=== PATIENT | female | born 1985 | race Caucasian/White ===

== ENCOUNTER 2016-06-18 22:32 | Emergency (ER) | payer SELFPAY ==
[2016-06-18 22:41] VITALS: TEMP 98.3; BMI 28.1
--- NOTE | 2016-06-18 23:33 | PDOC ---
History of Present Illness - General History Source: Patient Exam Limitations: No Limitations - History of Present Illness Initial Comments: 06/18/16 23:38 Patient is a 30 year old female with a significant past medical history of recurrent UTIs and kidney infection who presents to the ED with left flank pain and vomiting. Patient notes that the pain is so severe that she has had multiple vomiting episodes. She reports transient blood in vomit in her last 3 episodes. Patient states that she has had the left flank pain for 1 week and the pain has been intermittent nonradiating. She had not had regular periods since she had her child. No fever or chills. She denies dysuria. <Savanah Castro - Last Filed: 06/18/16 23:38> - General History Source: Patient <Vish Peña - Last Filed: 06/19/16 05:49> - General Chief Complaint: Vomiting Blood Stated Complaint: VOMITING BLOOD Time Seen by Provider: 06/18/16 23:33 Past History <Savanah Castro - Last Filed: 06/18/16 23:38> - Past Medical History Asthma: No Cancer: No (precervical ca stage I) Cardiac Disorders: No Diabetes: No Disorders: Yes (KIDNEY INFECTION) HTN: No Seizures: No Thyroid Disease: No - Surgical History Cholecystectomy: Yes - Reproductive History (#): 13 Para: 3 Therapeutic (s) & number: No Spontaneous : 9 - Immunization History Immunization Up to Date: Yes - Psycho/Social/Smoking Cessation Hx Anxiety: No Suicidal Ideation: No Smoking History: Never smoked Have you smoked in the past 12 months: No Number of Cigarettes Smoked Daily: 0 Hx Alcohol Use: No Drug/Substance Use Hx: No Substance Use Type: None Hx Substance Use Treatment: No <Vish Peña - Last Filed: 06/19/16 05:49> - Past Medical History Allergies/Adverse Reactions: Allergies Allergy/AdvReac Type Severity Reaction Status Date / Time No Known Allergies Allergy Verified 01/07/16 21:19 Home Medications: Ambulatory Orders Vit/Iron Fumarate/FA [ Tablet] 1 each PO DAILY 09/09/15 Ibuprofen [Motrin] 600 mg PO TID #30 tablet 06/19/16 Oxycodone HCl/Acetaminophen [Percocet 5-325 mg Tablet] 1 - 2 tab PO Q6H #20 tablet MDD 4 06/19/16 Sulfamethoxazole/Trimethoprim [Bactrim *Ds*] 1 tab PO BID #20 tablet 06/19/16 Review of Systems - Review of Systems Able to Perform ROS?: Yes Comments:: 06/18/16 23:39 CONSTITUTIONAL: Absent: fever, chills, diaphoresis, generalized weakness, malaise, loss of appetite HEENT: Absent: rhinorrhea, nasal congestion, throat pain, throat swelling, difficulty swallowing, mouth swelling, ear pain, eye pain, visual Changes CARDIOVASCULAR: Absent: chest pain, syncope, palpitations, irregular heart rate, lightheadedness , peripheral edema RESPIRATORY: Absent: cough, shortness of breath, dyspnea with exertion, orthopnea, wheezing, stridor, hemoptysis GASTROINTESTINAL: Present: vomiting Absent: abdominal pain, abdominal distension, nausea, diarrhea, constipation, melena, hematochezia GENITOURINARY: Present: flank pain Absent: dysuria, frequency, urgency, hesitancy, hematuria, genital pain MUSCULOSKELETAL: Absent: myalgia, arthralgia, joint swelling SKIN: Absent: rash, itching, pallor HEMATOLOGIC/IMMUNOLOGIC: Absent: easy bleeding, easy bruising, lymphadenopathy, frequent infections ENDOCRINE: Absent: unexplained weight gain, unexplained weight loss, heat intolerance, cold intolerance NEUROLOGIC: Absent: headache, focal weakness or paresthesias, dizziness, unsteady gait, seizure, mental status changes, bladder or bowel incontinence PSYCHIATRIC: Absent: anxiety, depression, suicidal or homicidal ideation, hallucinations. <Savanah Castro - Last Filed: 06/18/16 23:38> *Physical Exam - Vital Signs Last Vital Signs Temp Pulse Resp BP Pulse Ox 98.3 F 81 20 102/70 99 06/18/16 22:39 06/18/16 22:39 06/18/16 22:39 06/18/16 22:39 06/18/16 22:39 - Physical Exam Comments: 06/18/16 23:40 GENERAL: Well developed, well nourished. Awake and alert. +In moderate acute distress. HEENT: Normocephalic, atraumatic. PERRLA, EOMI. No conjunctival pallor. Sclerae are non -icteric. Moist mucous membranes. Oropharynx is clear. NECK: Supple. Full ROM. No JVD. Carotid pulses 2+ and symmetric, without bruits. No thyromegaly. No lymphadenopathy. CARDIOVASCULAR: Regular rate and rhythm. No murmurs, rubs, or gallops. Distal pulses are 2+ and symmetric. PULMONARY: No evidence of respiratory distress. Lungs clear to auscultation bilaterally. No wheezing, rales or rhonchi. ABDOMINAL: Soft. Non-tender. Non-distended. No rebound or guarding. No organomegaly. Normoactive bowel sounds. MUSCULOSKELETAL +Moderate left CVA tenderness. Normal range of motion at all joints. No bony deformities or tenderness. EXTREMITIES: No cyanosis. No clubbing. No edema. No calf tenderness. SKIN: Warm and dry. Normal capillary refill. No rashes. No jaundice. NEUROLOGICAL: Alert, awake, appropriate. Cranial nerves 2-12 intact. No deficits to light touch and temperature in face, upper extremities and lower extremities. No motor deficits in the in face, upper extremities and lower extremities. Normoreflexic in the upper and lower extremities. Normal speech. Toes are downgoing bilaterally. Gait is normal without ataxia. PSYCHIATRIC: Cooperative. Good eye contact. Appropriate mood and affect. <Savanah Castro - Last Filed: 06/18/16 23:38> - Vital Signs Last Vital Signs Temp Pulse Resp BP Pulse Ox 98.3 F 81 20 102/70 99 06/18/16 22:39 06/18/16 22:39 06/18/16 22:39 06/18/16 22:39 06/18/16 22:39 <Vish Peña - Last Filed: 06/19/16 05:49> ED Treatment Course - LABORATORY CBC & Chemistry Diagram: 06/18/16 23:45 06/18/16 23:45 <Vish Peña - Last Filed: 06/19/16 05:49> Medical Decision Making - Medical Decision Making 06/19/16 05:47 Dr. Peña: The scribe's documentation has been prepared under my direction and personally reviewed by me in its entirery. I confirm that the note above accurately reflects all work, treatment, procedures, and medical decision making performed by me. Pt found to have UTI by UA. Pt feels better after treatment here in the ED. Will discharge <Vish Peña - Last Filed: 06/19/16 05:49> *DC/Admit/Observation/Transfer - Attestations Scribe Attestion: 06/18/16 23:41 Documentation prepared by ZACKARY Martines, acting as diploma medical assistant for Vish Peña DO. <Savanah Castro - Last Filed: 06/18/16 23:38> - Discharge Dispostion Admit: No <Vish Peña - Last Filed: 06/19/16 05:49> Diagnosis at time of Disposition: Urinary tract infection Qualifiers: Urinary tract infection type: site unspecified Hematuria presence: without hematuria Qualified Code(s): N39.0 - Urinary tract infection, site not specified - Discharge Dispostion Disposition: HOME Condition at time of disposition: Improved - Prescriptions Prescriptions: Sulfamethoxazole/Trimethoprim [Bactrim *Ds*] 1 tab PO BID #20 tablet Ibuprofen [Motrin] 600 mg PO TID #30 tablet Oxycodone HCl/Acetaminophen [Percocet 5-325 mg Tablet] 1 - 2 tab PO Q6H #20 tablet MDD 4 - Referrals Referrals: Sher Ochoa [Primary Care Provider] - - Patient Instructions Printed Discharge Instructions: DI for Urinary Tract Infection (UTI) - Post Discharge Activity Work/School Note: Back to Work
[2016-06-18] MEDS ORDERED: SODIUM CHLORIDE 1,000 ML IV STA (23:34)
[2016-06-18] MEDS ORDERED: KETOROLAC TROMETHAMINE 30 MG/1 ML VIAL IVPUSH ONE (23:34)
[2016-06-18] MEDS ORDERED: KETOROLAC TROMETHAMINE 30 MG/1 ML VIAL ONE (23:44)
[2016-06-18 23:54] LABS: BASOPHIL 0.7 % (0-2.0); EOSINOPHIL 1.4 % (0-4.5); MCH 28.1 pg (25.7-33.7); MCHC 33.1 g/dl (32.0-36.0); MEAN CELL VOLUME 84.7 fl (80-96); MEAN PLT VOLUME 8.3 fl (7.5-11.1); NEUTROPHILS 61.2 % (42.8-82.8); PLATELET COUNT 276 K/MM3 (134-434); RDW 13.7 % (11.6-15.6); WHITE BLOOD COUNT 11.1 K/mm3 (4.0-10.0)
[2016-06-19] MEDS ORDERED: morphine CARPU-JECT 2 MG/1 ML DISP.SYRIN IVPUSH ONE (00:45)
[2016-06-19] MEDS ORDERED: ONDANSETRON 4 MG/2 ML VIAL IVPUSH STA ×2 (00:45→04:43)
[2016-06-19] MEDS ORDERED: SODIUM CHLORIDE 1,000 ML IV STA (00:45)
[2016-06-19 00:53] LABS: ALBUMIN 3.5 g/dl (3.4-5.0); ALK PHOS 68 U/L (45-117); ANION GAP 10 (8-16); BILIRUBIN,TOTAL 0.4 mg/dL (0.2-1.0); CALCIUM 8.7 mg/dL (8.5-10.1); CO2 30 mmol/L (21-32); CREATININE 0.9 mg/dL (0.55-1.02); GLUCOSE,RANDOM 91 mg/dL (74-106); MAGNESIUM 2.2 mg/dL (1.8-2.4); SGOT/AST 13 U/L (15-37); SGPT/ALT 22 U/L (12-78); TOT PROT 7.4 g/dl (6.4-8.2)
[2016-06-19] MEDS ORDERED: ONDANSETRON 4 MG/2 ML VIAL ONE ×2 (00:55→04:45)
[2016-06-19] MEDS ORDERED: morphine CARPU-JECT 2 MG/1 ML DISP.SYRIN ONE (00:55)
[2016-06-19] MEDS ORDERED: DEXTROSE 5%-0.45% SALINE 1,000 ML IV SCH (01:45)
[2016-06-19] MEDS ORDERED: cefTRIAXone SODIUM 1 GM VIAL ONE (04:24)
[2016-06-19 04:27] LABS: URINE APPEARANCE SLCLOUDY; URINE BILIRUBIN NEGATIVE (NEGATIVE); URINE COLOR YELLOW; URINE GLUCOSE (UA) NEGATIVE (NEGATIVE); URINE KETONE NEGATIVE (NEGATIVE); URINE NITRITE POSITIVE (NEGATIVE); URINE PROTEIN NEGATIVE (NEGATIVE); URINE UROBILINOGEN NEGATIVE E.U./dl (0.2-1.0)
[2016-06-19 04:29] LABS: URINE BLOOD 1+ (NEGATIVE); URINE LEUK ESTERASE 1+ (NEGATIVE)
[2016-06-19 04:43] LABS: URINE BACTERIA FEW /hpf (NONE SEEN); URINE MUCUS MODERATE; URINE RBC 1 /hpf (0-3); URINE WBC 14 /hpf (3-5)
[2016-06-19] MEDS ORDERED: OXYCODONE/APAP 5/325MG COMBO TABLET PO ONE (04:43)
[2016-06-19] MEDS ORDERED: OXYCODONE/APAP 5/325MG COMBO TABLET ONE (04:45)
[2016-06-19 07:11] VITALS: BP 94/70; PULSE 63
== END 2016-06-19 07:11 | disposition home or self-care (01) ==
LOC: JER 22:32
PROC: 3E03329 Introduction of Other Anti-infective into Peripheral Vein, Percutaneous Approach (ICD-10-PCS; principal; 2016-06-18)
PROC: 3E0333Z Introduction of Anti-inflammatory into Peripheral Vein, Percutaneous Approach (ICD-10-PCS; 2016-06-18)
PROC: 3E033NZ Introduction of Analgesics, Hypnotics, Sedatives into Peripheral Vein, Percutaneous Approach (ICD-10-PCS; 2016-06-18)
PROC: 3E0337Z Introduction of Electrolytic and Water Balance Substance into Peripheral Vein, Percutaneous Approach (ICD-10-PCS; 2016-06-18)
DX: N39.0 Urinary tract infection, site not specified (principal)
CPT/HCPCS: 36415; 80053; 81003; 81015; 83690; 83735; 84703; 85025; 87086; 87186; 99282-25

== ENCOUNTER 2017-02-22 17:06 | Emergency (ER) | payer OTHER ==
[2017-02-22 17:13] VITALS: TEMP 98.2; BMI 27.3
--- NOTE | 2017-02-22 17:14 | PDOC ---
Rapid Medical Evaluation Time Seen by Provider: 02/22/17 17:10 Medical Evaluation: Allergies Allergy/AdvReac Type Severity Reaction Status Date / Time No Known Allergies Allergy Verified 01/07/16 21:19 02/22/17 17:10 I have performed a brief in-person evaluation of this patient. The patient presents with a chief complaint of: left flank pain intermittent x3 weeks Pertinent physical exam findings: M/S: left CVAT ABD: SNTND I have ordered the following: UPT, UA, Urine cx The patient will proceed to the ED for further evaluation. Discharge Disposition - Diagnosis Flank pain - Referrals - Patient Instructions - Post Discharge Activity
[2017-02-22] MEDS ORDERED: SODIUM CHLORIDE 1,000 ML IV STA (17:55)
--- NOTE | 2017-02-22 18:09 | PDOC ---
History of Present Illness - General History Source: Patient Exam Limitations: No Limitations - History of Present Illness Initial Comments: 02/22/17 18:11 The patient is a 31 year old female, with a significant past medical history of frequent UTIs/ kidney infections(X3), who presents to the emergency department with flank pain for approximately 3 weeks. The patient reports her pain is localized to her left flank. She describes her pain as a sharp, stabbing, as if I had ripped my kidney out. She rates the pain a 9/10 and reports it is nonradiating in nature. She reports taking Ibuprofen for the pain with no relief. Patient reports her pain is exacerbated with movement, lying down on her left side, and with palpation, and denies any alleviating factors. She reports associated chills, diaphoresis, nausea, vomiting(nonbloody/nonbilious), and diarrhea(since today). She reports increased fatigue over the past 3 weeks , for which she is on iron pills for. She denies any dysuria, hematuria, frequency, or urgency. She denies any fever, headache, or dizziness. She denies any changes in vision or lightheadedness. Allergies: NKDA Past Surgical History: Cholecystectomy, tonsillectomy Social History: Non smoker. No ETOH or recreational drug use. Has 7 kids. <Fran Hernandez - Last Filed: 02/22/17 18:17> - General History Source: Patient Exam Limitations: No Limitations <Raheel Corona - Last Filed: 02/22/17 19:57> - General Chief Complaint: Pain, Acute Stated Complaint: PAIN LEFT FLANK Time Seen by Provider: 02/22/17 17:10 Past History <Fran Hernandez - Last Filed: 02/22/17 18:17> - Past Medical History Asthma: No Cancer: No (precervical ca stage I) Cardiac Disorders: No COPD: No Diabetes: No Disorders: Yes (KIDNEY INFECTION) HTN: No Seizures: No Thyroid Disease: No - Surgical History Cholecystectomy: Yes - Reproductive History (#): 13 Para: 3 Therapeutic (s) & number: No Spontaneous : 9 - Immunization History Immunization Up to Date: Yes - Suicide/Smoking/Psychosocial Hx Smoking History: Never smoked Have you smoked in the past 12 months: No Number of Cigarettes Smoked Daily: 0 Information on smoking cessation initiated: No Hx Alcohol Use: No Drug/Substance Use Hx: No Substance Use Type: None Hx Substance Use Treatment: No <Raheel Corona - Last Filed: 02/22/17 19:57> - Past Medical History Allergies/Adverse Reactions: Allergies Allergy/AdvReac Type Severity Reaction Status Date / Time No Known Allergies Allergy Verified 02/22/17 17:13 Home Medications: Ambulatory Orders Vit/Iron Fumarate/FA [ Tablet] 1 each PO DAILY 09/09/15 Ibuprofen [Motrin] 600 mg PO TID #30 tablet 06/19/16 Oxycodone HCl/Acetaminophen [Percocet 5-325 mg Tablet] 1 - 2 tab PO Q6H #20 tablet MDD 4 06/19/16 Sulfamethoxazole/Trimethoprim [Bactrim *Ds*] 1 tab PO BID #20 tablet 06/19/16 Ciprofloxacin [Cipro -] 500 mg PO Q12H #14 tablet 02/22/17 Naproxen [Naprosyn -] 500 mg PO BID PRN #20 tablet 02/22/17 Review of Systems - Review of Systems Able to Perform ROS?: Yes Comments:: 02/22/17 18:12 GENERAL/CONSTITUTIONAL: Yes chills, diaphoresis, fatigue. No fever. No weakness. HEAD, EYES, EARS, NOSE AND THROAT: No change in vision. No ear pain or discharge. No sore throat. CARDIOVASCULAR: No chest pain or shortness of breath. RESPIRATORY: No cough, wheezing, or hemoptysis. GASTROINTESTINAL: Yes nausea, vomiting, diarrhea. No constipation. GENITOURINARY: Yes left flank pain. No dysuria, frequency, or change in urination. MUSCULOSKELETAL: Yes left flank pain. No joint or muscle swelling or pain. No other neck or back pain. SKIN: No rash NEUROLOGIC: No headache, vertigo, loss of consciousness, or change in strength/ sensation. ENDOCRINE: No increased thirst. No abnormal weight change. HEMATOLOGIC/LYMPHATIC: No anemia, easy bleeding, or history of blood clots. ALLERGIC/IMMUNOLOGIC: No hives or skin allergy. <Fran Hernandez - Last Filed: 02/22/17 18:17> *Physical Exam - Vital Signs Last Vital Signs Temp Pulse Resp BP Pulse Ox 98.2 F 92 H 19 106/78 100 02/22/17 17:11 02/22/17 17:11 02/22/17 17:11 02/22/17 17:11 02/22/17 17:11 - Physical Exam Comments: 02/22/17 18:12 GENERAL: Awake, alert, and fully oriented, in no acute distress HEAD: No signs of trauma EYES: PERRLA, EOMI, sclera anicteric, conjunctiva clear ENT: Auricles normal inspection, hearing grossly normal, nares patent, oropharynx clear without exudates. Moist mucosa. NECK: Normal ROM, supple, no lymphadenopathy, JVD, or masses LUNGS: Breath sounds equal, clear to auscultation bilaterally. No wheezes, and no crackles HEART: Regular rate and rhythm, normal S1 and S2, no murmurs, rubs or gallops ABDOMEN: Soft, nontender, normoactive bowel sounds. No guarding, no rebound. No masses BACK: Left CVA tenderness. No paraspinal tenderness. No cervical spine tenderness. EXTREMITIES: Normal range of motion, no edema. No clubbing or cyanosis. No cords, erythema, or tenderness NEUROLOGICAL: Cranial nerves II through XII grossly intact. Normal speech, normal gait SKIN: Warm, Dry, normal turgor, no rashes or lesions noted. <Hernandez,Giomilsy - Last Filed: 02/22/17 18:17> - Vital Signs Last Vital Signs Temp Pulse Resp BP Pulse Ox 98.2 F 92 H 19 106/78 100 02/22/17 17:11 02/22/17 17:11 02/22/17 17:11 02/22/17 17:11 02/22/17 17:11 <Raheel Corona - Last Filed: 02/22/17 19:57> ED Treatment Course - LABORATORY CBC & Chemistry Diagram: 02/22/17 18:17 02/22/17 18:17 <Raheel Corona - Last Filed: 02/22/17 19:57> Medical Decision Making - Medical Decision Making 02/22/17 18:07 A portion of this note was written by my scribe, under my supervision. Vital Signs Temp Pulse Resp BP Pulse Ox 98.2 F 92 H 19 106/78 100 02/22/17 17:11 02/22/17 17:11 02/22/17 17:11 02/22/17 17:11 02/22/17 17:11 31 year old female with history of iron deficiency anemia, UTIs/kidney infections presents with left flank pain x 3 weeks. Reports intermittent chills and tactile fevers x 3 weeks but denies dysuria, hematuria. Yesterday, endorsed nausea and 2 episodes of loose stools today. Pt suspects she may have pyelonephritis. Will r/o pyelo. Labs, UA/UC, IVF and pain control and reassess. 02/22/17 19:48 CBC, BMP 02/22/17 18:17 02/22/17 18:17 CMP Sodium 139 mmol/L (136-145) 02/22/17 18:17 Potassium 4.0 mmol/L (3.5-5.1) 02/22/17 18:17 Chloride 105 mmol/L (98-107) 02/22/17 18:17 Carbon Dioxide 30 mmol/L (21-32) 02/22/17 18:17 Anion Gap 4 (8-16) L 02/22/17 18:17 BUN 11 mg/dL (7-18) D 02/22/17 18:17 Creatinine 0.8 mg/dL (0.55-1.02) 02/22/17 18:17 Creat Clearance w eGFR > 60 (>60) 02/22/17 18:17 Random Glucose 82 mg/dL (74-106) 02/22/17 18:17 Calcium 8.8 mg/dL (8.5-10.1) 02/22/17 18:17 AST 8 U/L (15-37) L D 02/22/17 18:17 ALT 14 U/L (12-78) D 02/22/17 18:17 Albumin 3.5 g/dl (3.4-5.0) 02/22/17 18:17 Lipase 147 U/L (73-393) 02/22/17 18:17 Urine Test Results Urine Color Yellow 02/22/17 18:17 Urine Appearance Slcloudy 02/22/17 18:17 Urine pH 5.0 (5.0-8.0) 02/22/17 18:17 Ur Specific [place] 1.025 (1.001-1.035) 02/22/17 18:17 Urine Protein Negative (NEGATIVE) 02/22/17 18:17 Urine Glucose (UA) Negative (NEGATIVE) 02/22/17 18:17 Urine Ketones Negative (NEGATIVE) 02/22/17 18:17 Urine Blood 3+ (NEGATIVE) H 02/22/17 18:17 Urine Nitrite Negative (NEGATIVE) 02/22/17 18:17 Urine Bilirubin Negative (NEGATIVE) 02/22/17 18:17 Ur Epithelial Cells Rare /HPF (FEW) 02/22/17 18:17 Urine Bacteria Rare /hpf (NONE SEEN) 02/22/17 18:17 Urine Mucus Moderate 02/22/17 18:17 Urine test negative. The patient is currently on her menstrual cycle. Though the urine is negative, the patient reports that this feels exactly like her pyelonephritis. So will treat as pyelo with ciprofloxacin. Patient is agreeable to plan. I discussed the physical exam findings, ancillary test results and final diagnoses with the patient. I answered all of the patient's questions. The patient was satisfied with the care received and felt comfortable with the discharge plan and treatment plan. The patient will call their primary care physician within 24 hours to arrange follow-up and will return to the Emergency Department with any new, persistant or worsening symptoms. <Raheel Corona - Last Filed: 02/22/17 19:57> *DC/Admit/Observation/Transfer - Attestations Scribe Attestion: 02/22/17 18:12 Documentation prepared by Fran Hernandez, acting as medical auditor for Raheel Corona MD. <Fran Hernandez - Last Filed: 02/22/17 18:17> - Discharge Dispostion Admit: No <Raheel Corona - Last Filed: 02/22/17 19:57> Diagnosis at time of Disposition: Flank pain - Discharge Dispostion Disposition: HOME Condition at time of disposition: Stable - Prescriptions Prescriptions: Ciprofloxacin [Cipro -] 500 mg PO Q12H #14 tablet Naproxen [Naprosyn -] 500 mg PO BID PRN #20 tablet PRN Reason: Pain/Fever - Patient Instructions Printed Discharge Instructions: DI for Kidney Infection Additional Instructions: Please take the ciprofloxacin every 12 hours for the next 7 days. You may take 500 mg naproxen every 12 hours as needed for pain/fever. It may take several days before your symptoms improve. Follow up with your doctors.
[2017-02-22] MEDS ORDERED: ACETAMINOPHEN 1000 MG/100 ML VIAL (NON FORMULARY) IVPB ONE (18:35)
[2017-02-22 18:37] LABS: BASOPHIL 0.8 % (0-2.0); EOSINOPHIL 2.1 % (0-4.5); MCH 27.4 pg (25.7-33.7); MCHC 32.7 g/dl (32.0-36.0); MEAN CELL VOLUME 83.9 fl (80-96); MEAN PLT VOLUME 8.2 fl (7.5-11.1); NEUTROPHILS 61.8 % (42.8-82.8); PLATELET COUNT 294 K/MM3 (134-434); RDW 14.5 % (11.6-15.6); WHITE BLOOD COUNT 7.4 K/mm3 (4.0-10.0)
[2017-02-22 18:42] LABS: URINE APPEARANCE SLCLOUDY; URINE BILIRUBIN NEGATIVE (NEGATIVE); URINE BLOOD 3+ (NEGATIVE); URINE COLOR YELLOW; URINE GLUCOSE (UA) NEGATIVE (NEGATIVE); URINE KETONE NEGATIVE (NEGATIVE); URINE LEUK ESTERASE TRACE (NEGATIVE); URINE NITRITE NEGATIVE (NEGATIVE); URINE PROTEIN NEGATIVE (NEGATIVE)
[2017-02-22 19:03] LABS: URINE BACTERIA RARE /hpf (NONE SEEN); URINE MUCUS MODERATE; URINE RBC 137 /hpf (0-3); URINE WBC 11 /hpf (3-5)
[2017-02-22] MEDS ORDERED: KETOROLAC TROMETHAMINE 30 MG/1 ML VIAL IVPUSH ONE (19:16)
[2017-02-22] MEDS ORDERED: KETOROLAC TROMETHAMINE 30 MG/1 ML VIAL ONE (19:33)
[2017-02-22 19:42] LABS: ALBUMIN 3.5 g/dl (3.4-5.0); ANION GAP 4 (8-16); CALCIUM 8.8 mg/dL (8.5-10.1); CO2 30 mmol/L (21-32); GLUCOSE,RANDOM 82 mg/dL (74-106)
[2017-02-22 19:44] LABS: CREATININE 0.8 mg/dL (0.55-1.02); SGOT/AST 8 U/L (15-37); SGPT/ALT 14 U/L (12-78)
[2017-02-22 19:47] LABS: ALK PHOS 86 U/L (45-117); BILIRUBIN,TOTAL 0.4 mg/dL (0.2-1.0); TOT PROT 7.9 g/dl (6.4-8.2)
[2017-02-22] MEDS ORDERED: LEVOFLOXACIN 500 MG TABLET (FP) PO ONE (19:50)
[2017-02-22] MEDS ORDERED: LEVOFLOXACIN 500 MG TABLET (FP) ONE (20:01)
[2017-02-22 20:14] VITALS: BP 130/78; PULSE 80
[2017-02-22 20:26] LABS: URINE LEUK ESTERASE Negative (NEGATIVE)
== END 2017-02-22 20:15 | disposition home or self-care (01) ==
LOC: JER 17:06
PROC: 3E0337Z Introduction of Electrolytic and Water Balance Substance into Peripheral Vein, Percutaneous Approach (ICD-10-PCS; principal; 2017-02-22)
PROC: 3E0333Z Introduction of Anti-inflammatory into Peripheral Vein, Percutaneous Approach (ICD-10-PCS; 2017-02-22)
DX: N12 Tubulo-interstitial nephritis, not specified as acute or chronic (principal)
CPT/HCPCS: 36415; 80053; 81003; 81015; 83690; 84703; 85025; 87086; 99283-25

== ENCOUNTER 2017-07-18 18:52 | Emergency (ER) | payer SELFPAY ==
[2017-07-18 19:18] VITALS: BP 108/81; PULSE 100; TEMP 98.2
--- NOTE | 2017-07-18 19:20 | PDOC ---
Rapid Medical Evaluation Time Seen by Provider: 07/18/17 19:16 Medical Evaluation: Allergies Allergy/AdvReac Type Severity Reaction Status Date / Time No Known Allergies Allergy Verified 07/18/17 19:13 07/18/17 19:17 Pt c/o: abd cramping this afternnon, +vag bleeding upon onset, none now, + preg test home , approx 12 weeks , no care as of yet Pt on brief exam: vss, Pt ordered for: type and screen, ua, labs, and ultrasound Pt to proceed to the ED Discharge Disposition - Diagnosis Abdominal pain in - Referrals - Patient Instructions - Post Discharge Activity
[2017-07-18 20:10] LABS: BASO % 0.8 % (0-2.0); EOS % 2.3 % (0-4.5); HEMATOCRIT 37.3 % (32.4-45.2); HEMOGLOBIN 12.8 GM/dL (10.7-15.3); MCH 29.1 pg (25.7-33.7); MCHC 34.3 g/dl (32.0-36.0); MEAN CELL VOLUME 84.7 fl (80-96); MEAN PLT VOLUME 8.1 fl (7.5-11.1); MONO % 6.9 % (3.8-10.2); PLATELET COUNT 288 K/MM3 (134-434); RDW 14.1 % (11.6-15.6); WHITE BLOOD COUNT 8.7 K/mm3 (4.0-10.0)
[2017-07-18 20:42] LABS: ALBUMIN 3.6 g/dl (3.4-5.0); ANION GAP 6 (8-16); BILIRUBIN,TOTAL 0.2 mg/dL (0.2-1.0); BLOOD UREA NITROGEN 13 mg/dL (7-18); CALCIUM 8.4 mg/dL (8.5-10.1); CHLORIDE 106 mmol/L (98-107); CO2 27 mmol/L (21-32); CREATININE 0.9 mg/dL (0.55-1.02); GLUCOSE,RANDOM 85 mg/dL (74-106); POTASSIUM 4.4 mmol/L (3.5-5.1); SGOT/AST 11 U/L (15-37); SGPT/ALT 13 U/L (12-78); SODIUM 139 mmol/L (136-145); TOT PROT 7.7 g/dl (6.4-8.2)
[2017-07-18 20:44] LABS: ALK PHOS 79 U/L (45-117)
[2017-07-18 20:56] LABS: URINE APPEARANCE CLEAR; URINE BILIRUBIN NEGATIVE (<2.0 mg/dL); URINE COLOR YELLOW; URINE GLUCOSE (UA) NEGATIVE (NEGATIVE); URINE KETONE NEGATIVE (NEGATIVE); URINE LEUK ESTERASE NEGATIVE (NEGATIVE); URINE NITRITE NEGATIVE (NEGATIVE); URINE PROTEIN NEGATIVE (NEGATIVE); URINE UROBILINOGEN NEGATIVE mg/dL (0.2-1.0)
--- NOTE | 2017-07-18 22:11 | PDOC ---
History of Present Illness - General History Source: Patient Exam Limitations: No Limitations - History of Present Illness Initial Comments: 07/18/17 22:15 The patient is a 31 year old [id number] female with a significant past medical history of pre-cervical cancer stage I and Kidney infection who presents to the emergency department complaining of vaginal bleeding and abdominal cramping this afternoon. The patient reports she woke up this morning with a large amount of vaginal bleeding, none at presentation. She describes the vaginal blood as bright red in color, devoid of clots. She reports her cramping began at 2 pm, but worsened around 6pm to the point where it was "too much to bear". She reports taking tylenol with no alleviation to abdominal pain. She reports having a positive home test, but denies receiving an ultrasound. The patient reports moderate abdominal pain which prompted her to visit the emergency department since she is currently 12 weeks . 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 She describes the previous miscarriages start with cramping with the development clots, but notes the exception that the vaginal blood is usually dark in color. She reports a history of chronic left flank pain since her last kidney infection ; however, was told her kidneys were normal. The patient denies chest pain, shortness of breath, headache, and dizziness. Denies fevers, chills, nausea, vomiting, diarrhea, and constipation. Denies dysuria, frequency, urgency, and hematuria. Allergies: NKDA Past surgical history: Cholecystectomy Social history: No reported cigarette, alcohol, or drug use. PCP: Dr. Jamie Whitehead ([phone]) <Ervin Mclean - Last Filed: 07/18/17 22:15> <Sonia Mendez - Last Filed: 07/18/17 22:34> - General Chief Complaint: Vaginal Bleeding Stated Complaint: VAGINAL BLEEDING/10 WKS Time Seen by Provider: 07/18/17 19:16 Past History <Ervin Mclean - Last Filed: 07/18/17 22:15> - Past Medical History Asthma: No Cancer: No (precervical ca stage I) Cardiac Disorders: No COPD: No Diabetes: No Disorders: Yes (KIDNEY INFECTION) HTN: No Seizures: No Thyroid Disease: No - Surgical History Cholecystectomy: Yes - Reproductive History (#): 13 Para: 3 Therapeutic (s) & number: No Spontaneous : 9 - Immunization History Immunization Up to Date: Yes - Suicide/Smoking/Psychosocial Hx Smoking History: Never smoked Have you smoked in the past 12 months: No Number of Cigarettes Smoked Daily: 0 Hx Alcohol Use: No Drug/Substance Use Hx: No Substance Use Type: None Hx Substance Use Treatment: No <Sonia Mendez - Last Filed: 07/18/17 22:34> - Past Medical History Allergies/Adverse Reactions: Allergies Allergy/AdvReac Type Severity Reaction Status Date / Time No Known Allergies Allergy Verified 07/18/17 19:18 Home Medications: Ambulatory Orders Vit/Iron Fum/Folic AC [ Tablet] 1 each PO DAILY 09/09/15 Ibuprofen [Motrin] 600 mg PO TID #30 tablet 06/19/16 Oxycodone HCl/Acetaminophen [Percocet 5-325 mg Tablet] 1 - 2 tab PO Q6H #20 tablet MDD 4 06/19/16 Sulfamethoxazole/Trimethoprim [Bactrim *Ds*] 1 tab PO BID #20 tablet 06/19/16 Ciprofloxacin [Cipro -] 500 mg PO Q12H #14 tablet 02/22/17 Naproxen [Naprosyn -] 500 mg PO BID PRN #20 tablet 02/22/17 Review of Systems - Review of Systems Able to Perform ROS?: Yes Comments:: GENERAL/CONSTITUTIONAL: No fever or chills. No weakness. HEAD, EYES, EARS, NOSE AND THROAT: No change in vision. No ear pain or discharge. No sore throat. GASTROINTESTINAL: No nausea, vomiting, diarrhea or constipation. GENITOURINARY: No dysuria, frequency, or change in urination. CARDIOVASCULAR: No chest pain or shortness of breath. RESPIRATORY: No cough, wheezing, or hemoptysis. MUSCULOSKELETAL: (+)Abdominal pain. No joint or muscle swelling or pain. No neck or back pain. SKIN: No rash NEUROLOGIC: No headache, vertigo, loss of consciousness, or change in strength/ sensation. ENDOCRINE: No increased thirst. No abnormal weight change. HEMATOLOGIC/LYMPHATIC: No anemia, easy bleeding, or history of blood clots. ALLERGIC/IMMUNOLOGIC: No hives or skin allergy. <Ervin Mclean - Last Filed: 07/18/17 22:15> *Physical Exam - Vital Signs Last Vital Signs Temp Pulse Resp BP Pulse Ox 98.2 F 100 H 20 108/81 100 07/18/17 19:14 07/18/17 19:14 07/18/17 19:14 07/18/17 19:14 07/18/17 19:14 - Physical Exam Comments: Constitutional: Awake, alert, oriented. No acute distress. Head: Normocephalic. Atraumatic Eyes: PERRL. EOMI. Conjunctivae are not pale. ENT: Mucous membranes are moist and intact. Posterior pharynx without exudates or erythema. Uvula midline. Neck: Supple. Full ROM. No lymphadenopathy. Cardiovascular: (+)Tachycardic. Pulmonary/Chest: No evidence of respiratory distress. Clear to auscultation bilaterally No wheezing, rales or rhonchi. Abdominal: Soft and non-distended. There is no tenderness. No rebound, guarding or rigidity. No organomegaly. No palpable masses. Good bowel sounds. Back: No CVA tenderness. Musculoskeletal: No edema. No cyanosis. No clubbing. Full range of motion in all extremities. Nocalf tenderness. Radial/pedal pulses are intact and 2+ bilaterally Skin: Skin is warm and dry. No petechiae. No purpura. Neurological: Alert and oriented to person, place, and time. Cranial nerves II -XII are grossly intact. Normal speech. Strength is grossly symmetric. No sensory deficits. Psychiatric: Good eye contact. Normal interaction, affect and behavior. Pelvic: (+)Mild superpubic tenderness on pelvic exam. (+)External genital normal. (+)Mild amount of white discharge. (+)Mild right adnexal tenderness. No CMT, no left pelvic pain. No blood in vault. <Ervin Mclean - Last Filed: 07/18/17 22:15> - Vital Signs Last Vital Signs Temp Pulse Resp BP Pulse Ox 98.2 F 100 H 20 108/81 100 07/18/17 19:14 07/18/17 19:14 07/18/17 19:14 07/18/17 19:14 07/18/17 19:14 <Sonia Mendez - Last Filed: 07/18/17 22:34> ED Treatment Course - LABORATORY CBC & Chemistry Diagram: 07/18/17 20:00 07/18/17 20:00 - ADDITIONAL ORDERS Additional order review: Laboratory Results 07/18/17 07/18/17 20:00 19:50 Sodium 139 Potassium 4.4 Chloride 106 Carbon Dioxide 27 Anion Gap 6 L BUN 13 Creatinine 0.9 Creat Clearance w eGFR > 60 Random Glucose 85 Calcium 8.4 L Total Bilirubin 0.2 D AST 11 L ALT 13 Alkaline Phosphatase 79 Total Protein 7.7 Albumin 3.6 Beta HCG, Quant 1069.5 Urine Color Yellow Urine Appearance Clear Urine pH 5.0 Ur Specific Wilson 1.026 Urine Protein Negative Urine Glucose (UA) Negative Urine Ketones Negative Urine Blood Negative Urine Nitrite Negative Urine Bilirubin Negative Urine Urobilinogen Negative Ur Leukocyte Esterase Negative 07/18/17 20:00 RBC 4.40 MCV 84.7 MCHC 34.3 RDW 14.1 MPV 8.1 Neutrophils % 56.0 Lymphocytes % 34.0 D Monocytes % 6.9 Eosinophils % 2.3 Basophils % 0.8 <Ervin Mclean - Last Filed: 07/18/17 22:15> - LABORATORY CBC & Chemistry Diagram: 07/18/17 20:00 07/18/17 20:00 - ADDITIONAL ORDERS Additional order review: Laboratory Results 07/18/17 07/18/17 20:00 19:50 Sodium 139 Potassium 4.4 Chloride 106 Carbon Dioxide 27 Anion Gap 6 L BUN 13 Creatinine 0.9 Creat Clearance w eGFR > 60 Random Glucose 85 Calcium 8.4 L Total Bilirubin 0.2 D AST 11 L ALT 13 Alkaline Phosphatase 79 Total Protein 7.7 Albumin 3.6 Beta HCG, Quant 1069.5 Urine Color Yellow Urine Appearance Clear Urine pH 5.0 Ur Specific Wilson 1.026 Urine Protein Negative Urine Glucose (UA) Negative Urine Ketones Negative Urine Blood Negative Urine Nitrite Negative Urine Bilirubin Negative Urine Urobilinogen Negative Ur Leukocyte Esterase Negative 07/18/17 20:00 RBC 4.40 MCV 84.7 MCHC 34.3 RDW 14.1 MPV 8.1 Neutrophils % 56.0 Lymphocytes % 34.0 D Monocytes % 6.9 Eosinophils % 2.3 Basophils % 0.8 <Sonia Mendez - Last Filed: 07/18/17 22:34> Medical Decision Making - Medical Decision Making 07/18/17 22:27 a/p: 31yo female with vaginal bleeding at home today -no bleeding currently -took home preg test 2 days ago -hx of irreg cycle, but has been regular x 2 years -follows with [facility] at [facility] -will check labs, u/s, ua -will monitor and reassess -no blood in vault, os closed 07/18/17 22:28 beta >1000, no IUP on u/s ?preg of unknown location vs ab vs early preg discussed with the patient she will need a repeat Beta in 48 hours gave patient a copy of her ultrasound report and hcg of 1069 answered all questions Rh+ stable for d/c to home <Sonia Mendez - Last Filed: 07/18/17 22:34> *DC/Admit/Observation/Transfer - Attestations Scribe Attestion: Documentation prepared by Ervin Mclean, acting as biomedical technician for Sonia Mendez DO. <Ervin Mclean - Last Filed: 07/18/17 22:15> - Discharge Dispostion Decision to Admit order: No - Attestations Physician Attestion: 07/18/17 22:34 I, Dr. Sonia Mendez DO, attest that this document has been prepared under my direction and personally reviewed by me in its entirety. I further attest, that it accurately reflects all work, treatment, procedures and medical decision -making performed by me. <Sonia Mendez - Last Filed: 07/18/17 22:34> Diagnosis at time of Disposition: Abdominal pain in , test positive - Discharge Dispostion Disposition: HOME Condition at time of disposition: Stable - Referrals Referrals: Jamie Whitehead MD [Primary Care Provider] - Paras Kang MD [Staff Physician] - - Patient Instructions Printed Discharge Instructions: DI for Vaginal Bleeding During Additional Instructions: Please return to the ED her at [facility] for a repeat Beta HCG in 48hours. Please make an appointment to see your ELECTROPHONIC ENGINEER in 2 days. Please return to the ED with any worsening symptoms or concerns. Please return to the ED if you start to bleed more than 2 pads/hour for more than 2 hours. - Post Discharge Activity
== END 2017-07-18 23:25 | disposition home or self-care (01) ==
LOC: JER 18:52
DX: O26.891 Other specified pregnancy related conditions, first trimester (principal); Z3A.12 12 weeks gestation of pregnancy; R10.2 Pelvic and perineal pain; Z85.41 Personal history of malignant neoplasm of cervix uteri
CPT/HCPCS: 36415; 76801-TC; 80053; 81003; 84702; 85025; 87086; 87186; 99281-25

== ENCOUNTER 2017-07-20 14:03 | Emergency (ER) | payer SELFPAY ==
[2017-07-20 14:11] VITALS: BP 102/74; PULSE 90; TEMP 98; BMI 28.9
--- NOTE | 2017-07-20 14:28 | PDOC ---
History of Present Illness - General Chief Complaint: Revisit, Lab Variance Stated Complaint: REVISIT, FOLLOW UP Time Seen by Provider: 07/20/17 14:20 History Source: Patient - History of Present Illness Initial Comments: 07/20/17 14:26 Patient came per request For follow-up for repeat ultrasound and beta hCG testing. Was seen here 2 days ago for abdominal pain and vaginal bleeding with known test at home positive. Beta hCG at that time was 1100, and ultrasound revealed no intrauterine . Patient has history of multiple miscarriages at the 10-12 week nick Timing/Duration: unsure Associated Symptoms: reports: denies symptoms Past History - Past Medical History Allergies/Adverse Reactions: Allergies Allergy/AdvReac Type Severity Reaction Status Date / Time No Known Allergies Allergy Verified 07/20/17 14:09 Home Medications: Ambulatory Orders NK [No Known Home Medication] 07/20/17 Asthma: No Cancer: No (precervical ca stage I) Cardiac Disorders: No COPD: No Diabetes: No Disorders: Yes (KIDNEY INFECTION) HTN: No Seizures: No Thyroid Disease: No - Surgical History Cholecystectomy: Yes - Reproductive History (#): 13 Para: 3 Therapeutic (s) & number: No Spontaneous : 9 - Immunization History Immunization Up to Date: Yes - Suicide/Smoking/Psychosocial Hx Smoking History: Never smoked Have you smoked in the past 12 months: No Number of Cigarettes Smoked Daily: 0 Hx Alcohol Use: No Drug/Substance Use Hx: No Substance Use Type: None Hx Substance Use Treatment: No *Physical Exam - Vital Signs Last Vital Signs Temp Pulse Resp BP Pulse Ox 98.0 F 90 18 102/74 100 07/20/17 14:09 07/20/17 14:09 07/20/17 14:09 07/20/17 14:07/20/17 14:09 - Physical Exam General Appearance: Yes: Appropriately Dressed, Apparent Distress HEENT: positive: EMI, Normal ENT Inspection, TMs Normal, Pharynx Normal Neck: negative: Tender Respiratory/Chest: positive: Lungs Clear Gastrointestinal/Abdominal: positive: Normal Bowel Sounds, Soft. negative: Tender Musculoskeletal: positive: Normal Inspection Extremity: positive: Normal Capillary Refill, Normal Range of Motion Integumentary: positive: Normal Color, Dry, Warm Neurologic: positive: business banking manager II-XII NML intact, Fully Oriented, Alert, Normal Mood/ Affect, Normal Response, Motor Strength 5/5 ED Treatment Course - RADIOLOGY Radiology Studies Ordered: Category Date Time Status FOLLOW-UP US [US] Stat Ultrasound 07/20/17 14:23 Ordered Medical Decision Making - Medical Decision Making 07/20/17 17:06 Ultrasound shows endometrial thickening, no identifiable intrauterine , no free fluid, no other adnexal pathology identified. Ultrasound is consistent with findings from 07/18/2017. Understands importance of follow-up on Saturday for repeat beta hCG and potential repeat ultrasound and COMPUTER SYSTEMS ADMINISTRATOR office for further evaluation and plan 07/20/17 17:08 *DC/Admit/Observation/Transfer Diagnosis at time of Disposition: test positive, Threatened - Discharge Dispostion Disposition: HOME Condition at time of disposition: Stable Decision to Admit order: No - Referrals Referrals: Shahida Falcon MD [Staff Physician] - - Patient Instructions Printed Discharge Instructions: DI for Vaginal Bleeding During Additional Instructions: Drink lots of fluids, avoid heavy lifting or strenuous activity Call for appointment with your COMPUTER SYSTEMS ADMINISTRATOR doctor for reevaluation Saturday or Saturday and repeat testing for possible viable intrauterine Return immediately to emergency department for fevers, recurrent bleeding or problems - Post Discharge Activity Forms/Work/School Notes: Back to Work
--- NOTE | 2017-07-23 08:06 | PDOC ---
Patient Follow-up (Call Back) - Post ED Follow - Up Condition at time of discharge: Stable Disposition at time of original discharge: HOME Reason for Call Back: Abnwl. Microbiology (Urine culture final report shows enterococcus faecalis. Called and spoke to and will go to [facility] to sheepskin pickler Macrobid.)
--- NOTE | 2017-07-23 08:20 | PDOC ---
Patient Follow-up (Call Back) - Post ED Follow - Up Condition at time of discharge: Stable Disposition at time of original discharge: HOME Reason for Call Back: Abnwl. Microbiology (Pt. called back after message left by ABDULLAHI Guerra. Gave urine results ((+) culture)and informed her that macrobid was waiting for her at the pharmacy. Pt. states she will peanut picker the medication and start taking it today.)
== END 2017-07-20 17:06 | disposition home or self-care (01) ==
LOC: JERFT 14:03
DX: O26.891 Other specified pregnancy related conditions, first trimester (principal); O20.0 Threatened abortion; Z3A.00 Weeks of gestation of pregnancy not specified
CPT/HCPCS: 36415; 76801-TC; 84702; 86850; 86900; 86901; 99281-25

== ENCOUNTER 2017-07-31 18:08 | Emergency (ER) | payer SELFPAY ==
[2017-07-31 18:19] VITALS: BMI 29.5
--- NOTE | 2017-07-31 18:23 | PDOC ---
Rapid Medical Evaluation Chief Complaint: Pain Time Seen by Provider: 07/31/17 18:16 Medical Evaluation: Allergies Allergy/AdvReac Type Severity Reaction Status Date / Time No Known Allergies Allergy Verified 07/31/17 18:15 Vital Signs Temp Pulse Resp BP Pulse Ox 98.3 F 83 16 116/85 100 07/31/17 18:15 07/31/17 18:15 07/31/17 18:15 07/31/17 18:15 07/31/17 18:15 07/31/17 18:20 I have performed a brief in-person evaluation of this patient. The patient presents with a chief complaint of: severe R pelvic pain w/ n/v today, Seen in ED 07/18 and for first trimester bleeding w/ inappropriately rising beta and no preg seen on US, r/o ectopic. has been unable to see her KIER PLEATER as insurance has been inactive. Has OB appt 08/13. No vag bleed, dizziness, syncope. On macrobid for UTI (e. faecalis on ucx 07/18 sen to macrobid). No dizzines, weakness Pertinent physical exam findings:stable I have ordered the following:US/beta The patient will proceed to the ED for further evaluation. 07/31/17 18:42 Discharge Disposition - Diagnosis Abdominal pain Qualifiers: Abdominal location: right lower quadrant Qualified Code(s): R10.31 - Right lower quadrant pain - Referrals - Patient Instructions - Post Discharge Activity
--- NOTE | 2017-07-31 19:14 | PDOC ---
History of Present Illness - General Chief Complaint: Pain Stated Complaint: PAIN Time Seen by Provider: 07/31/17 18:16 - History of Present Illness Initial Comments: Patient is a 31 year [id number] old female, with a significant past medical history of ASCUS, short cervix/loop cryotherapy, who presents to the emergency department complaining of one day of RLQ abdominal pain and N/V, worsening since this AM. Pt states she was in her usual state of health when she noted the onset of a deep, persistent RLQ pain described as "fullness", with radiation to the R flank. Pt also endorses multiple bouts of NBNB emesis this AM and increased abdominal distension. Pt with no hx of GI conditions. Recently here two weeks ago with vaginal bleeding with suspicion for threatened , however TVUS at time was negative for , but + for R ovarian cyst. Pt recently finished 7 day course of oral abx for UTI diagnosed on prior visit. Pt does not currently follow with an SENIOR STAFF CONSULTANT at this time. Last menstrual bleed was in mid April. Last BM was yesterday PM, which was normal. No recent travel, sick contacts or diet changes. Patient denies chest pain, shortness of breath, headache or dizziness. Denies fever, chills, diarrhea and constipation. Denies dysuria, frequency, urgency and hematuria. Allergies: None Past surgical history: GB removal; cyo-loop tx Social History: Denies smoking, alcohol or drug use PMD: None currently 07/31/17 19:11 Past History - Past Medical History Allergies/Adverse Reactions: Allergies Allergy/AdvReac Type Severity Reaction Status Date / Time No Known Allergies Allergy Verified 07/31/17 18:15 Home Medications: Ambulatory Orders Nitrofurantoin Monohyd/M-Cryst [Macrobid -] 100 mg PO BID #14 capsule 07/23/17 Asthma: No Cancer: No (precervical ca stage I) Cardiac Disorders: No COPD: No Diabetes: No Disorders: Yes (KIDNEY INFECTION) HTN: No Seizures: No Thyroid Disease: No - Surgical History Cholecystectomy: Yes - Reproductive History (#): 13 Para: 3 Therapeutic (s) & number: No Spontaneous : 9 - Immunization History Immunization Up to Date: Yes - Suicide/Smoking/Psychosocial Hx Smoking History: Never smoked Have you smoked in the past 12 months: No Number of Cigarettes Smoked Daily: 0 Information on smoking cessation initiated: No Hx Alcohol Use: No Drug/Substance Use Hx: No Substance Use Type: None Hx Substance Use Treatment: No Review of Systems - Review of Systems Comments:: GENERAL/CONSTITUTIONAL: No fever or chills. No weakness. HEAD, EYES, EARS, NOSE AND THROAT: No change in vision. No ear pain or discharge. No sore throat. CARDIOVASCULAR: No chest pain or shortness of breath RESPIRATORY: No cough, wheezing, or hemoptysis. GASTROINTESTINAL: +NBNB nausea, vomiting, abdominal distension, RLQ pain; no diarrhea or constipation. GENITOURINARY: No dysuria, frequency, or change in urination. MUSCULOSKELETAL: No joint or muscle swelling or pain. No neck or back pain. SKIN: No rash NEUROLOGIC: No headache, vertigo, loss of consciousness, or change in strength/ sensation. ENDOCRINE: No increased thirst. No abnormal weight change HEMATOLOGIC/LYMPHATIC: No anemia, easy bleeding, or history of blood clots. ALLERGIC/IMMUNOLOGIC: No hives or skin allergy. 07/31/17 19:11 *Physical Exam - Vital Signs Last Vital Signs Temp Pulse Resp BP Pulse Ox 98.3 F 83 16 116/85 100 07/31/17 18:15 07/31/17 18:15 07/31/17 18:15 07/31/17 18:15 07/31/17 18:15 - Physical Exam Comments: GENERAL: Young woman, Awake, alert, and fully oriented, in no acute distress HEAD: No signs of trauma, normocephalic, atraumatic EYES: PERRLA, EOMI, sclera anicteric, conjunctiva clear ENT: Auricles normal inspection, hearing grossly normal, nares patent, oropharynx clear without exudates. Moist mucosa NECK: Normal ROM, supple, no lymphadenopathy, JVD, or masses LUNGS: No distress, speaks full sentences, clear to auscultation bilaterally HEART: Regular rate and rhythm, normal S1 and S2, no murmurs, rubs or gallops, peripheral pulses normal and equal bilaterally. ABDOMEN: TTP in RLQ. Slightly distended abdomen. + bowel sounds, mild discomfort on palpation in all other quadrants. no rebound. No masses EXTREMITIES : Normal inspection, Normal range of motion, no edema. No clubbing or cyanosis. NEUROLOGICAL: Cranial nerves II through XII grossly intact. Normal speech, normal gait, no focal sensorimotor deficits SKIN: Warm, Dry, normal turgor, no rashes or lesions noted 07/31/17 19:12 ED Treatment Course - LABORATORY CBC & Chemistry Diagram: 07/31/17 20:40 07/31/17 20:40 Medical Decision Making - Medical Decision Making Patient is a 31 year [id number] old female, with a significant past medical history of ASCUS, short cervix/loop cryotherapy, who presents to the emergency department complaining of one day of RLQ abdominal pain and N/V, worsening since this AM. TVUS notable for intrauterine preg of 6 weeks age and R ovarian cyst seen on prior imaging; no evidence of torsion, ectopic , rupture, abscess. Plan: -cbc, cmp - B-HCG quant - tylenol for pain control; likely d/c home with outpt f/u with investment consultant 07/31/17 20:55 CBC, CMP unremarkable. B-HCG pending due to technical issues with lab, unable to obtain results tonight. Will discharge with outpt f/u with SENIOR STAFF CONSULTANT. Referral provided for Dr. Calle, SENIOR STAFF CONSULTANT. The patient has gotten significant relief of symptoms with ED medications. Workup is not concerning for emergency-level pathology at this time. The patient is appropriate for discharge with close outpatient follow up. They are comfortable with this plan and will follow up with their PCP in 1-3 days. Return precautions are discussed and they will come back to the ER if necessary. *DC/Admit/Observation/Transfer Diagnosis at time of Disposition: Abdominal pain Qualifiers: Abdominal location: right lower quadrant Qualified Code(s): R10.31 - Right lower quadrant pain - Discharge Dispostion Disposition: HOME Condition at time of disposition: Good Decision to Admit order: No - Referrals Referrals: Aziza Calle MD [Staff Physician] - 1 week - Patient Instructions Additional Instructions: During your visit to the [facility] ED, you were evaluated for pain in your right lower quadrant. You received standard labs and a vaginal ultrasound which was notable for a viable 6 week ago intrauterine . You are being discharged home with outpatient follow-up with your primary care provider and are being provided a referral to see our SENIOR STAFF CONSULTANT physician, Dr. Calle. Please take tylenol 650mg every four hours if you experience pain until your symptoms resolve. You are being provided a referral for follow-up with Dr. Calle, our SENIOR STAFF CONSULTANT for further continuation of your obstetrical care. Please call the number provided in this packet to schedule an appointment within one week. If you experience any of the following symptoms, please return to the ED: - Persistent fevers/chills >3 days - Worsening pain in your abdomen, pain or groin - Persistent bleeding, discharge from your vagina - Prolonged diarrhea, constipation or any bloody or dark stools - Any new or concerning symptoms - Post Discharge Activity
--- NOTE | 2017-07-31 20:45 | PDOC ---
Attending Attestation - HPI HPI: 07/31/17 21:30 The patient is a 31 year old 6-week female [id number], with a significant past medical history of ASCUS, short cervix/loop cryotherapy, who presents to the emergency department with, one day of worsening RLQ abdominal pain with associated nausea and vomiting. She describes her pain as crampy, ranking a 6/10, and radiating to her right flank with associated abdominal distention. She reports her pain has somewhat alleviated since coming into the ED. She describes her emesis as nonbloody and nonbilious. She reports a recent trip to the ED for vaginal bleeding and a possible threatened . The transvaginal ultrasound reports depicted a negative and a right ovarian cyst. The patient was diagnosed with a UTI which she recently finished a course of antibiotics for. Her last menses was mid April. She denies recent fevers, chills, headache or dizziness. She denies recent diarrhea or constipation. She denies recent dysuria, frequency, urgency or hematuria. She denies recent chest pain or shortness of breath. Allergies: NKA Past surgical history: GB removal; cyo-loop tx. Social history: Nonsmoker. Denies EtOH use and recreational drug use. <Salinas Valdes - Last Filed: 07/31/17 21:30> - Resident Resident Name: Fly Hood - ED Attending Attestation I have performed the following: I have examined & evaluated the patient, The case was reviewed & discussed with the resident, I agree w/resident's findings & plan, Exceptions are as noted - Physicial Exam PE: 08/01/17 19:18 *Physical Exam General Appearance: Yes: Appropriately Dressed. No: Apparent Distress, Intoxicated HEENT: positive: EOMI, EMI, Normal ENT Inspection, Normal Voice, TMs Normal, Pharynx Normal. negative: Pale Conjunctivae, Photophobia, Scleral Icterus (R), Scleral Icterus (L) Neck: positive: Trachea midline, Normal Thyroid, Supple. negative: Tender, Rigid, Carotid bruit, Stridor, Lymphadenopathy (R), Lymphadenopathy (L), Thyromegaly Respiratory/Chest: positive: Lungs Clear, Normal Breath Sounds. negative: Chest Tender, Respiratory Distress, Accessory Muscle Use, Labored Respiration, RES, Crackles, Rales, Rhonchi, Stridor, Wheezing, Dullness Cardiovascular: positive: Regular Rhythm, Regular Rate, S1, S2. negative: Edema , JVD, Murmur, Bradycardia, Tachycardia Vascular Pulses: Dorsalis-Pedis (R): 2+, Doralis-Pedis (L): 2+ Gastrointestinal/Abdominal: positive: Normal Bowel Sounds, Flat, Soft. negative : Tender, Organomegaly, Pulsatile Mass, Increased Bowel Sounds, Decreased BS, Distended, Guarding, Rebound, Hernia, Hepatomegaly, Spleenomegaly Lymphatic: negative: Adenopathy, Tenderness Musculoskeletal: positive: Normal Inspection. negative: CVA Tenderness, Decreased Range of Motion Extremity: positive: Normal Capillary Refill, Normal Inspection, Normal Range of Motion, Pelvis Stable. negative: Tender, Pedal Edema, Swelling, Erythema Integumentary: positive: Normal Color, Dry, Warm. 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 negative: EOM Palsy, Facial Droop, Sensory Musculoskeletal: positive: Normal Inspection. negative: CVA Tenderness, Decreased Range of Motion Extremity: positive: Normal Capillary Refill, Normal Inspection, Normal Range of Motion, Pelvis Stable. negative: Tender, Pedal Edema, Swelling, Erythema Integumentary: positive: Normal Color, Dry, Warm. 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 negative: EOM Palsy, Facial Droop, Sensory Deficit - Medical Decision Making 08/01/17 19:18 Pt treated and released. <Vish Peña - Last Filed: 08/01/17 19:19> Attestations - Attestations 07/31/17 21:30 Documentation prepared by Salinas Valdes, acting as medical dosimetrist for Vish Peña DO. <Salinas Valdes - Last Filed: 07/31/17 21:30>
[2017-07-31 20:56] LABS: BASO % 0.7 % (0-2.0); EOS % 1.1 % (0-4.5); HEMATOCRIT 38.7 % (32.4-45.2); HEMOGLOBIN 12.9 GM/dL (10.7-15.3); LYMPH % 33.8 % (8-40); MCH 28.2 pg (25.7-33.7); MCHC 33.4 g/dl (32.0-36.0); MEAN CELL VOLUME 84.4 fl (80-96); MEAN PLT VOLUME 8.4 fl (7.5-11.1); MONO % 6.7 % (3.8-10.2); NEUT % 57.7 % (42.8-82.8); PLATELET COUNT 259 K/MM3 (134-434); RBC 4.58 M/mm3 (3.60-5.2); RDW 14.2 % (11.6-15.6); WHITE BLOOD COUNT 9.4 K/mm3 (4.0-10.0)
[2017-07-31] MEDS ORDERED: ACETAMINOPHEN 325 MG TABLET (FP) ONE (21:09)
[2017-07-31] MEDS ORDERED: ACETAMINOPHEN 325 MG TABLET (FP) PO ONE (21:13)
[2017-07-31 22:48] LABS: ALBUMIN 3.8 g/dl (3.5-5.0); ALK PHOS 55 U/L (32-92); ANION GAP 5 (8-16); BLOOD UREA NITROGEN 10 mg/dl (7-18); CALCIUM 9.1 mg/dl (8.4-10.2); CHLORIDE 103 mmol/L (98-107); CO2 26 mmol/L (22-28); GLUCOSE,RANDOM 88 mg/dl (74-106); POTASSIUM 4.1 mmol/L (3.5-5.1); SGOT/AST 18 U/L (10-42); SGPT/ALT 13 U/L (10-40); SODIUM 134 mmol/L (136-145); TOT PROT 7.3 g/dl (6.4-8.3)
[2017-07-31 22:51] LABS: BILIRUBIN,TOTAL < 0.5 mg/dl (0.2-1.0); CREATININE < 0.8 mg/dl (0.6-1.3)
[2017-07-31 22:56] LABS: URINE APPEARANCE CLEAR; URINE BILIRUBIN NEGATIVE (<2.0 mg/dL); URINE COLOR YELLOW; URINE GLUCOSE (UA) NEGATIVE (NEGATIVE); URINE KETONE NEGATIVE (NEGATIVE); URINE LEUK ESTERASE NEGATIVE (NEGATIVE); URINE NITRITE NEGATIVE (NEGATIVE); URINE PROTEIN NEGATIVE (NEGATIVE); URINE UROBILINOGEN NEGATIVE mg/dL (0.2-1.0)
[2017-08-01 00:05] VITALS: BP 102/88; PULSE 80; TEMP 98
== END 2017-08-01 00:50 | disposition home or self-care (01) ==
LOC: JER 18:08
DX: O26.891 Other specified pregnancy related conditions, first trimester (principal); R10.31 Right lower quadrant pain; Z3A.01 Less than 8 weeks gestation of pregnancy
CPT/HCPCS: 36415; 76817-TC; 80053; 81003; 84702; 85025; 87086; 99281-25